=== PATIENT | male | born 1950 | race Caucasian/White ===

== ENCOUNTER 2016-07-28 18:47 | Observation (INO) | payer OTHER, MEDICARE ==
--- NOTE | 2016-07-28 19:01 | EDPHY ---
H & P Stated Complaint: leg cramping in bi-lat upper thighs Time Seen by Provider: 07/28/16 19:01 HPI/ROS: CHIEF COMPLAINT: Resolved left leg weakness HISTORY OF PRESENT ILLNESS: The patient presents to the emergency department with a chief complaint of resolve left leg weakness. Patient reported that 2 nights ago he experienced some cramping in his bilateral upper thighs but then developed a reported complete paralysis involving his left leg. The symptoms persisted for at least an hour. They gradually resolved through the night. Since that time the patient has had no recurrent symptoms. Patient did seek care at urgent care for evaluation of his symptoms and was referred to the ED for further evaluation. The patient tells me he has had approximately a 1-2 month history of some mild disequilibrium. He denies any dysarthria, aphasia or additional peripheral neurologic complaints. Patient does have a history of an aortic valve repair which was performed in [facility]. The patient was on an anticoagulant until earlier in the year. The patient has recently moved to [place] and has yet to establish primary care. REVIEW OF SYSTEMS: A comprehensive 10 point review of systems is otherwise negative aside from elements mentioned in the history of present illness. Source: Patient Exam Limitations: No limitations - Personal History Current Tetanus/Diphtheria Vaccine: Unsure Current Tetanus Diphtheria and Acellular Pertussis (TDAP): Unsure - Medical/Surgical History Hx Asthma: No Hx Chronic Respiratory Disease: Yes Hx Diabetes: No Hx Cardiac Disease: Yes Hx Renal Disease: Yes Hx Cirrhosis: No Hx Alcoholism: No Hx HIV/AIDS: No Hx Splenectomy or Spleen Trauma: No Other PMH: Angioplasty stent cad, COPD, HTN, High chol, gout - Social History Smoking Status: Former smoker - Physical Exam Exam: General Appearance: Alert, no distress Eyes: Pupils equal and round no pallor or injection ENT, Mouth: Mucous membranes moist Neck: No carotid bruit Respiratory: There are no retractions, lungs are clear to auscultation Cardiovascular: Regular rate and rhythm Gastrointestinal: Abdomen is soft and nontender, no masses, bowel sounds normal Neurological: A&O, normal motor function, normal sensory exam, normal cranial nerves Skin: Warm and dry, no rashes Musculoskeletal: Neck is supple nontender Extremities: symmetrical, full range of motion Constitutional: Initial Vital Signs Temperature (C) 36.5 C 07/28/16 18:50 Heart Rate 67 01/18/17 18:50 Respiratory Rate 16 07/28/16 18:50 Blood Pressure 150/85 H 07/28/16 18:50 O2 Sat (%) 95 07/28/16 18:50 O2 Delivery Mode Room Air Allergies/Adverse Reactions: No Known Allergies Allergy (Unverified 07/28/16 18:53) Home Medications: Medication Instructions Recorded Allopurinol [Allopurinol 100 MG 100 mg PO DAILY 07/28/16 (*)] Aspirin EC [Aspirin EC 81 mg (*)] 81 mg PO HS 07/28/16 Atorvastatin Calcium [Lipitor 20 20 mg PO HS 07/28/16 mg (*)] Budesonide/Formoterol 160/4.5 2 puffs IH BID 07/28/16 [Symbicort 160-4.5 Mcg Inh (*)] Herbals/Supplements -Info Only 1 ea PO DAILY 07/28/16 Omeprazole 40 mg PO DAILY 07/28/16 Valsartan [Diovan (*)] 160 mg PO DAILY 07/28/16 Vitamin B Complex [Super B-50 1 each PO DAILY 07/28/16 Complex] Medical Decision Making - Diagnostics EKG Interpretation: EKG: Complete interpretation has been separately recorded in the [employer] archive. Summary impression: Sinus rhythm, rate 58 Imaging: CT head without contrast: Nonspecific white matter changes noted, no mass, no bleed The CT angiogram neck: Complete occlusion of left internal carotid artery, collateral flow noted, no additional vascular abnormalities present. ED Course/Re-evaluation: The patient presents to the ED after an episode of left leg weakness 2 days ago which is entirely resolved. The patient has an NIH stroke scale of 0. The patient is noted to be in a sinus rhythm. Additionally the patient had a history of palpitations during his episode of leg weakness. The patient does have a history of an aortic valve repair and had been on Coumadin which he no longer takes. In the course of his workup he had an unremarkable noncontrast head CT scan. The patient does have evidence of a complete left internal carotid artery occlusion with collateral blood flow noted on the remainder of his angiogram. I do feel the patient should be admitted to the hospital for evaluation of a possible TIA. The patient does meet any criteria for thrombolytics therapy as he is currently asymptomatic. With a 100% collision of left internal carotid artery the patient is likely not a surgical candidate. My primary consideration for admitting the patient is his history of palpitations with these atypical neurologic symptoms in his left leg. Plan will be for monitoring for evidence of arrhythmia as well as echocardiogram. I will defer to the hospitalist service for any MRI imaging. Consultation is made with the hospitalist service for admission. I spoke with Dr. Edwards who will admit the patient. Differential Diagnosis: Differential diagnosis considered includes ischemic stroke, hemorrhagic stroke, TIA, peripheral neuropathy, arrhythmia, carotid dissection, carotid occlusion - Data Points Laboratory Results: Laboratory Results 07/28/16 19:46 07/28/16 19:46 07/28/16 07/28/16 19:50 19:46 WBC 8.74 10^3/uL (3.80-9.50) RBC 4.40 10^6/uL (4.40-6.38) Hgb 15.0 g/dL (13.7-17.5) POC Hgb 15.3 gm/dL (14.5-17.3) Hct 43.1 % (40.0-51.0) POC Hct 45 % (42.8-50.6) MCV 98.0 fL (81.5-99.8) MCH 34.1 pg (27.9-34.1) MCHC 34.8 g/dL (32.4-36.7) RDW 12.5 % (11.5-15.2) Plt Count 238 10^3/uL (150-400) MPV 9.8 fL (8.7-11.7) Neut % (Auto) 63.0 % (39.3-74.2) Lymph % (Auto) 23.0 % (15.0-45.0) [place] % (Auto) 8.0 % (4.5-13.0) Eos % (Auto) 4.3 % (0.6-7.6) Baso % (Auto) 1.1 % (0.3-1.7) Nucleat RBC Rel Count 0.0 % (0.0-0.2) Absolute Neuts (auto) 5.50 10^3/uL (1.70-6.50) Absolute Lymphs (auto) 2.01 10^3/uL (1.00-3.00) Absolute Monos (auto) 0.70 10^3/uL (0.30-0.80) Absolute Eos (auto) 0.38 10^3/uL (0.03-0.40) Absolute Basos (auto) 0.10 10^3/uL (0.02-0.10) Absolute Nucleated RBC 0.00 10^3/uL (0-0.01) Immature Gran % 0.6 % (0.0-1.1) Immature Gran # 0.05 10^3/uL (0.00-0.10) POC Sodium 143 mEq/L (134-144) Sodium 142 mEq/L (134-144) POC Potassium 4.2 mEq/L (3.3-5.0) Potassium 4.4 mEq/L (3.5-5.2) POC Chloride 104 mEq/L (96-108) Chloride 103 mEq/L (97-110) Carbon Dioxide 29 mEq/l (22-31) Anion Gap 10 mEq/L (8-16) POC BUN 27 H mg/dL (7-23) BUN 26 H mg/dL (7-23) Creatinine 1.4 H mg/dL (0.7-1.3) POC Creatinine 1.5 mg/dL (0.8-1.5) Estimated GFR 51 Glucose 83 mg/dL (70-100) POC Glucose 84 mg/dL (70-100) Calcium 9.3 mg/dL (8.5-10.4) Point of Care Test Results: 07/28/16 19:50 POC Sodium 143 POC Potassium 4.2 POC Chloride 104 POC BUN 27 H POC Creatinine 1.5 POC Glucose 84 Departure - Departure Disposition: [facility] Inpatient Acute Clinical Impression: TIA (transient ischemic attack), Left carotid artery occlusion Condition: Good Referrals: NONE *PRIMARY CARE P,. [Primary Care Provider] - As per Instructions
--- NOTE | 2016-07-28 19:52 | CPEKG ---
Heart Rate: 58 RR Interval: 1034 P-R Interval: 172 QRSD Interval: 94 QT Interval: 400 QTC Interval: 393 P [place]: 55 QRS [place]: 53 T Wave [place]: 79 EKG Severity - BORDERLINE ECG - EKG Impression: SINUS RHYTHM EKG Impression: PROBABLE LEFT ATRIAL ABNORMALITY Electronically Signed By: Cruz Harper 28-Jul-2016 21:08:13
[2016-07-28 19:56] LABS: % IMMATURE GRANULYOCYTES 0.6 % (0.0-1.1); ABSOLUTE IMMATURE GRANULOCYTES 0.05 10^3/uL (0.00-0.10); ADD DIFF? NO; ADD MORPH? NO; ADD SCAN? NO; ATYPICAL LYMPHOCYTE FLAG 10 (0-99); FRAGMENT RBC FLAG 0 (0-99); HEMATOCRIT 43.1 % (40.0-51.0); LEFT SHIFT FLG 0 (0-99); LIPEMIA HEMOLYSIS FLAG 90 (0-99); MEAN CELL HEMOGLOBIN 34.1 pg (27.9-34.1); MEAN CELL HEMOGLOBIN CONCENTR. 34.8 g/dL (32.4-36.7); MEAN PLATELET VOLUME 9.8 fL (8.7-11.7); PLATELET CLUMPS FLAG 10 (0-99); PLATELET COUNT 238 10^3/uL (150-400); RED CELL DISTRIBUTION WIDTH 12.5 % (11.5-15.2)
[2016-07-28 20:16] LABS: ANION GAP 10 mEq/L (8-16); CALCIUM 9.3 mg/dL (8.5-10.4); CARBON DIOXIDE 29 mEq/l (22-31); CHLORIDE 103 mEq/L (97-110); CREATININE 1.4 mg/dL (0.7-1.3); GLOMERULAR FILTRATION RATE 51; GLUCOSE 83 mg/dL (70-100); POTASSIUM 4.4 mEq/L (3.5-5.2); SODIUM 142 mEq/L (134-144)
[2016-07-28] MEDS ORDERED: IOPAMIDOL (ISOVUE 370) 100 ML BTL IV ONE (20:23)
--- NOTE | 2016-07-28 21:33 | CT ---
CT Brain (Without Contrast) July 28, 2016 at 2035 hours History: Leg weakness. Technique: Axial computed tomographic images of the brain, without contrast. Dose reduction techniq ues were utilized. Comparison: None. Findings: Ventricles, cisterns, and sulci are widened consistent with atrophy. No hydrocephalus, mi dline shift/herniation, or epidural/subdural hematomas. No acute intraparenchymal hemorrhage or mass effect. Cerebrovascular atherosclerosis. Hypodensities in the white matter of bilateral cerebral hemispheres. Bone windows demonstrate no displaced fractures. Paranasal sinuses and mastoid air ce lls are clear. Impressions 1. Mild atrophy. 2. No acute hemorrhage, hydrocephalus, or mass effect. 3. Cerebrovascular atherosclerosis. 4. No definite acute infarct. 5. Moderate microvascular ischemic disease. Critical results relayed by Dr. De La Cruz to Dr. Harper on July 28, 2016 at 2048 hours.
--- NOTE | 2016-07-28 22:04 | CT ---
CT Angiogram Head and CT Angiogram Neck Clinical Indication: TIA like symptoms. TECHNIQUE: 0.75-mm contiguous helical axial scanning from the lung apices through the top of the hea d after the uneventful administration of 75 mL of Isovue-370. Routine reconstructions were performed in the coronal and sagittal planes. Dose reduction technique was performed. FINDINGS CT Angiogram Neck: Timing of the bolus is adequate. The lung apices are clear. The brachiocephalic artery is patent. The common carotid artery is patent. The right vertebral artery is patent. The aortic bulb on the right is normal, with minimal soft plaque. The external carotid artery is patent. The internal carotid artery is patent. The left common carotid artery is patent. The left externa l carotid artery is patent. There is occlusion of the internal carotid artery on the left side. The left vertebral artery is patent. The subclavian artery is widely patent. IMPRESSION: Internal carotid artery occlusion, left side just beyond the bulb, new. CT Angiogram Head: The intracranial vessels fill equally despite the occluded internal carotid arter y. The anterior cerebral, middle cerebral, posterior cerebral, basilar, and vertebral arteries are w idely patent, without evidence of aneurysm or stenosis. The posterior communicating arteries are pat ent. IMPRESSION: Good collateralization of the intracranial vasculature despite internal carotid artery o cclusion on the left side. Critical results relayed by Dr. De La Cruz to Dr. Harper on July 28, 2015 at 2106 hours.
[2016-07-28] MEDS ORDERED: ACETAMINOPHEN 325 MG TAB PO PRN (22:41)
[2016-07-28] MEDS ORDERED: HYDROCODONE/APAP 5/325 TAB PO PRN (22:41)
[2016-07-28] MEDS ORDERED: ONDANSETRON 4 MG/2 ML VIAL IVP PRN (22:41)
[2016-07-28] MEDS ORDERED: ALBUTEROL 3 ML DEYVIAL IH PRN (22:41)
[2016-07-28] MEDS ORDERED: ONDANSETRON DISINTEGRATING 4 MG TAB PO PRN (22:41)
[2016-07-28] MEDS ORDERED: ATORVASTATIN CALCIUM 20 MG TAB ONE (22:53)
[2016-07-28] MEDS ORDERED: ASPIRIN 81 MG CHEWABLE TAB ONE (22:54)
[2016-07-28] MEDS ORDERED: ASPIRIN EC 81 MG TAB PO SCH (23:00)
[2016-07-28] MEDS ORDERED: ATORVASTATIN CALCIUM 20 MG TAB PO SCH (23:00)
--- NOTE | 2016-07-29 03:54 | PDGENHP ---
History and Physical - Chief Complaint transiet leg weakness - History of Present Illness Patient is a 66-year-old male with history of hypertension, COPD, CAD and CKD presents to the ED with complaint of left leg weakness experienced 2 days ago. Patient states on the evening of 07/25 into program arranger of 07/26 he was lying in his bed when he felt cramping sensation in his posterior thigh of the left leg. With this pain he also reported feeling some palpitations. The symptoms occurred in 2 distinct episodes lasting a minute or 2 He got out of bed at this time to try and walk around and noticed his leg did not seem to be working and he was having difficulty walking due to leg weakness. He went back to bed and by the morning on awakening his symptoms had resolved. He denies any fall or associated numbness/tingling, headache, dizziness, chest pain, shortness of breath, nausea, vomiting or diarrhea. He also denies any recent illnesses. Given the associated palpitations, the following day the patient decided trying obtain an appointment with a orchestra conductor. When he described his symptoms to the orchestra conductor's office he was advised to go to the emergency room for further evaluation. He postpone coming to the ED for another day, and then on 07/28 went to an urgent care for evaluation. His symptoms had resolved and he had no other complaints on arrival to the urgent care, was sent to the ED for further evaluation. History Information - Allergies/Home Medication List Allergies/Adverse Reactions: No Known Allergies Allergy (Unverified 07/28/16 18:53) Home Medications: Allopurinol [Allopurinol 100 MG (*)] 100 mg PO DAILY 07/28/16 [Last Taken ] Aspirin EC [Aspirin EC 81 mg (*)] 81 mg PO HS 07/28/16 [Last Taken 07/27/16] Atorvastatin Calcium [Lipitor 20 mg (*)] 20 mg PO HS 07/28/16 [Last Taken ] Budesonide/Formoterol 160/4.5 [Symbicort 160-4.5 Mcg Inh (*)] 2 puffs IH BID [Last Taken Unknown] Herbals/Supplements -Info Only 1 ea PO DAILY 07/28/16 [Last Taken Unknown] Omeprazole 40 mg PO DAILY 07/28/16 [Last Taken Unknown] Valsartan [Diovan (*)] 160 mg PO DAILY 07/28/16 [Last Taken 07/28/16] Vitamin B Complex [Super B-50 Complex] 1 each PO DAILY 07/28/16 [Last Taken ] I have personally reviewed and updated: family history, medical history, social history, surgical history - Past Medical History Additional medical history: CAD status post PCI x1 about 2 years ago. Hypertension. Hyperlipidemia. COPD. Gout. CKD stage 2 to 3 - Surgical History Additional surgical history: Denies any surgical history - Family History Positive for: non-pertinent (No family history of cardiac disease) - Social History Smoking Status: Former smoker (Quit smoking about 6 years ago, had 35 pack year history) Alcohol Use: Occasionally Drug Use: None Additional social history: Patient currently works in [employer]. Recently moved to [place] after living in [facility] and [place]. He lives alone is independent in all ADLs. Review of Systems ROS: 10pt was reviewed & negative except for what was stated in HPI & below Physical Exam Temp Pulse Resp BP Pulse Ox 36.4 C 62 18 106/65 93 07/29/16 00:00 07/29/16 00:00 07/29/16 00:00 07/29/16 00:00 07/29/16 00:00 Constitutional: no apparent distress, appears nourished, not in pain Eyes: PERRL, anicteric sclera, EOMI Ears, Nose, Mouth, Throat: moist mucous membranes, hearing normal, ears appear normal, no oral mucosal ulcers Cardiovascular: regular rate and rhythym, systolic murmur, pulses symmetric bilaterally, No JVD, No edema Peripheral Pulses: 2+: dorsalis-pedis (R), dorsalis-pedis (L) Respiratory: no respiratory distress, no rales or rhonchi, clear to auscultation Gastrointestinal: normoactive bowel sounds, soft, non-tender abdomen, no palpable masses Genitourinary: no bladder fullness, no bladder tenderness Skin: warm, normal color, no rashes or abrasions, no fluctuance, No mottled Musculoskeletal: full muscle strength, no muscle tenderness, normal joint ROM, no joint effusions Neurologic: AAOx3, sensation intact bilaterally, CN II-XII Intact, other ( Strength 5/5 in all extremities), No weakness, No numbness, No pronator drift, No facial droop Psychiatric: interacting appropriately, not anxious, not encephalopathic, thought process linear Lab Data & Imaging Review 07/28/16 19:46 07/28/16 19:46 WBC 8.74 10^3/uL (3.80-9.50) 07/28/16 19:46 RBC 4.40 10^6/uL (4.40-6.38) 07/28/16 19:46 Hgb 15.0 g/dL (13.7-17.5) 07/28/16 19:46 POC Hgb 15.3 gm/dL (14.5-17.3) 07/28/16 19:50 Hct 43.1 % (40.0-51.0) 07/28/16 19:46 POC Hct 45 % (42.8-50.6) 07/28/16 19:50 MCV 98.0 fL (81.5-99.8) 07/28/16 19:46 MCH 34.1 pg (27.9-34.1) 07/28/16 19:46 MCHC 34.8 g/dL (32.4-36.7) 07/28/16 19:46 RDW 12.5 % (11.5-15.2) 07/28/16 19:46 Plt Count 238 10^3/uL (150-400) 07/28/16 19:46 MPV 9.8 fL (8.7-11.7) 07/28/16 19:46 Neut % (Auto) 63.0 % (39.3-74.2) 07/28/16 19:46 Lymph % (Auto) 23.0 % (15.0-45.0) 07/28/16 19:46 [place] % (Auto) 8.0 % (4.5-13.0) 07/28/16 19:46 Eos % (Auto) 4.3 % (0.6-7.6) 07/28/16 19:46 Baso % (Auto) 1.1 % (0.3-1.7) 07/28/16 19:46 Nucleat RBC Rel Count 0.0 % (0.0-0.2) 07/28/16 19:46 Absolute Neuts (auto) 5.50 10^3/uL (1.70-6.50) 07/28/16 19:46 Absolute Lymphs (auto) 2.01 10^3/uL (1.00-3.00) 07/28/16 19:46 Absolute Monos (auto) 0.70 10^3/uL (0.30-0.80) 07/28/16 19:46 Absolute Eos (auto) 0.38 10^3/uL (0.03-0.40) 07/28/16 19:46 Absolute Basos (auto) 0.10 10^3/uL (0.02-0.10) 07/28/16 19:46 Absolute Nucleated RBC 0.00 10^3/uL (0-0.01) 07/28/16 19:46 Immature Gran % 0.6 % (0.0-1.1) 07/28/16 19:46 Immature Gran # 0.05 10^3/uL (0.00-0.10) 07/28/16 19:46 POC Sodium 143 mEq/L (134-144) 07/28/16 19:50 Sodium 142 mEq/L (134-144) 07/28/16 19:46 POC Potassium 4.2 mEq/L (3.3-5.0) 07/28/16 19:50 Potassium 4.4 mEq/L (3.5-5.2) 07/28/16 19:46 POC Chloride 104 mEq/L (96-108) 07/28/16 19:50 Chloride 103 mEq/L (97-110) 07/28/16 19:46 Carbon Dioxide 29 mEq/l (22-31) 07/28/16 19:46 Anion Gap 10 mEq/L (8-16) 07/28/16 19:46 POC BUN 27 mg/dL (7-23) H 07/28/16 19:50 BUN 26 mg/dL (7-23) H 07/28/16 19:46 Creatinine 1.4 mg/dL (0.7-1.3) H 07/28/16 19:46 POC Creatinine 1.5 mg/dL (0.8-1.5) 07/28/16 19:50 Estimated GFR 51 07/28/16 19:46 Glucose 83 mg/dL (70-100) 07/28/16 19:46 POC Glucose 84 mg/dL (70-100) 07/28/16 19:50 Calcium 9.3 mg/dL (8.5-10.4) 07/28/16 19:46 Visualized and Interpreted imaging results: Yes Interpretation: CT head: No acute intracranial abnormality. CT angio head/neck : 100% occlusion of left internal carotid artery, with good collateral Visualized and Interpreted EKG results: Yes EKG Interpretation: Positive for: normal sinsus rhythm (No ST/T-wave changes, normal intervals) Assessment & Plan Assessment: Patient is a 66-year-old male with history of CAD, hypertension, COPD and CKD who presents to the ED complaining of at isolated episode of left lower extremity weakness 2 days prior to presentation. Current neuro exam is unremarkable. ED workup reveals 100% left ICA occlusion, was otherwise unremarkable. Plan: # left lower extremity weakness The event occurred of 2 days prior to presentation and has not recurred since, and was not associated with any other focal neurological symptoms or deficits. Workup reveals 100% occlusion of the left ICA, with good collateral formation. EKG and labs were unremarkable. Symptoms appear consistent with a TIA. Will monitor on telemetry, check TTE and obtain MRI brain. Patient is already on aspirin and statin, will continue these. # CAD w/PCI x 1 Patient denies any cardiac symptoms on presentation. Will cont home meds. # COPD Stable respiratory status, cont home advair, albuterol prn. # HTN BP stable. Cont home med. # HLD cont statin. # CKD Renal function mildly impaired, have given gentle IVF hydration and will reassess. Likely at baseline. # dispo: admit as observation status for w/u of TIA # full code
[2016-07-29] MEDS ORDERED: NS 1,000 ML IV ONE (04:15)
[2016-07-29 05:33] LABS: % IMMATURE GRANULYOCYTES 0.5 % (0.0-1.1); ABSOLUTE IMMATURE GRANULOCYTES 0.04 10^3/uL (0.00-0.10); ADD DIFF? NO; ADD MORPH? NO; ADD SCAN? NO; ATYPICAL LYMPHOCYTE FLAG 10 (0-99); FRAGMENT RBC FLAG 0 (0-99); HEMOGLOBIN 14.3 g/dL (13.7-17.5); LEFT SHIFT FLG 0 (0-99); LIPEMIA HEMOLYSIS FLAG 90 (0-99); MEAN CELL HEMOGLOBIN CONCENTR. 34.9 g/dL (32.4-36.7); MEAN CELL VOLUME 97.4 fL (81.5-99.8); MEAN PLATELET VOLUME 10.4 fL (8.7-11.7); PLATELET CLUMPS FLAG 10 (0-99); PLATELET COUNT 238 10^3/uL (150-400); RED BLOOD CELL COUNT 4.21 10^6/uL (4.40-6.38); RED CELL DISTRIBUTION WIDTH 12.5 % (11.5-15.2)
[2016-07-29 05:46] LABS: ANION GAP 10 mEq/L (8-16); CARBON DIOXIDE 26 mEq/l (22-31); CHLORIDE 106 mEq/L (97-110); CREATININE 1.4 mg/dL (0.7-1.3); GLOMERULAR FILTRATION RATE 51; GLUCOSE 91 mg/dL (70-100); MAGNESIUM 2.1 mg/dL (1.6-2.3); POTASSIUM 4.2 mEq/L (3.5-5.2); SODIUM 142 mEq/L (134-144)
[2016-07-29 05:58] LABS: TROPONIN I 0.026 ng/mL (0-0.034)
[2016-07-29 08:46] VITALS: RESP 18
[2016-07-29] MEDS ORDERED: PANTOPRAZOLE SODIUM 40 MG TAB PO SCH (09:00)
[2016-07-29] MEDS ORDERED: ENOXAPARIN 40 MG/0.4 ML SYR SC SCH (09:00)
[2016-07-29] MEDS ORDERED: VALSARTAN 160 MG TAB PO SCH (09:00)
[2016-07-29] MEDS ORDERED: BUDESONIDE/FORMOTEROL 160/4.5 60 PUFFS/MDI IH SCH (09:00)
[2016-07-29] MEDS ORDERED: VITAMIN B COMPLEX 1 EA CAP/TAB PO SCH (09:00)
[2016-07-29] MEDS ORDERED: ALLOPURINOL 100 MG TAB PO SCH (09:00)
--- NOTE | 2016-07-29 09:51 | MR ---
MRI of the Brain (Without Contrast) at 0857 hours Clinical Indication: Possible transient ischemic attack 2 days ago with left leg weakness COMPARISON: CT brain July 28, 2016. Technique: T1-weighted images were acquired axially and sagittally from the foramen magnum to the ve rtex. Axial fast inversion recovery, fast T2-weighted, and diffusion-weighted axial images were obta ined without contrast. Findings: The ventricles, cisterns, and sulci are widened consistent with atrophy. No hydrocephalus, midline shift, herniation, or epidural/subdural hematomas. No intracranial hemorrhage or masses. Dif fusion-weighted sequence demonstrates no acute infarct. Cerebellar tonsils are in normal positions. P ituitary gland is normal in size. Occluded left internal carotid artery. Flow void in the right inter nal carotid artery and basilar artery indicating patency. Superior sagittal sinus appears patent. Par anasal sinuses and mastoid air cells are clear. Throughout the white matter of bilateral cerebral hem ispheres especially in the periventricular white matter of bilateral frontal, parietal and occipital lobes there are multiple hyperintense T2/FLAIR signal abnormalities and decreased T1 signal abnormali ties oriented perpendicular to the long axis and predominantly in the periventricular and pericallosa l white matter suggestive of multiple sclerosis. No definite evidence of restricted diffusion. No bra instem or cerebellar infarcts noted. Impression: 1. Mild cerebral atrophy. 2. No acute infarct, acute hemorrhage, hydrocephalus, mass effect, or herniation. 3. Several multiple sclerosis demyelinating plaques noted. 4. Occluded left internal carotid artery. Findings discussed with Dr. Telma Dejesus at 0945 hour, today.
--- NOTE | 2016-07-29 11:28 | ECHO ---
[id number] + + [address] : : [place] [address] : : [phone] + Adult Echocardiographic Report + ---+ :Name: Sophie GUERRERO Date: 07/29/2016 08:35 AM : : Hospital Admission Number: [id number] Location: 343: :: 1950 Gender: Male Height: 72 in : :Age: 66 yrs Race: WH Weight: 199 lb : :Reason For Study: Eval LV Fx, Valves : : BSA: 2.1 meters2 : :History: TIA, Occluded LCC, Murmur : + ---+ MMode/2D Measurements & Calculations IVSd: 0.85 cm LVIDd: 5.1 cm FS: 48.8 % Ao root diam: 3.1 cm LVPWd: 1.2 cm LVIDs: 2.6 cm EDV(Teich): 123.2 ml ACS: 0.78 cm ESV(Teich): 24.8 ml EF(Teich): 79.9 % LVOT diam: 2.1 cm LVOT area: 3.5 cm2 Normal Measurement Values: + + :LVIDd (3.5-5.7cm) IVSd (0.6-1.1cm) LVPWd (0.6-1.1cm) Aortic Root (2.0-3.7cm)Left Atrium (1.5-4.0cm): :LV Vol(d) (76-115ml) LV Vol(s) (29-48ml) Ejec Fraction (50-65%)PV [place] (0.6- 1.2m/s) TV [place] (0.4-1.0m/s) : :MV E [place] (0.8-1.0m/s)MV A [place] (0.3-1.0m/s)LVOT [place] (0.7-1.2m/s) Asc Ao [place] ( 0.9-1.8m/s) : + + Doppler Measurements & Calculations MV E max edmond: MV V2 mean: Ao V2 max: AI max edmond: 69.6 cm/sec 72.3 cm/sec 295.9 cm/sec 356.3 cm/sec MV A max edmond: MV mean PG: Ao max PG: AI max P.8 mmHg 84.4 cm/sec 2.5 mmHg 35.0 mmHg AI dec slope: MV E/A: 0.82 MV V2 VTI: Ao mean P.2 cm 20.4 mmHg 173.7 cm/sec2 Ao V2 mean: AI P1/2t: 601.0 msec MVA(VTI): 3.7 cm2 212.4 cm/sec Ao V2 VTI: 69.7 cm JOHANN(I,D): 2.0 cm2 JOHANN(V,D): 2.0 cm2 LV V1 max: SV(LVOT): PA V2 max: TR max edmond: 168.4 cm/sec 142.7 ml 111.3 cm/sec 302.7 cm/sec LV V1 max PG: PA max PG: TR max P.6 mmHg 11.3 mmHg 5.0 mmHg RAP systole: LV V1 mean P.0 mmHg 7.6 mmHg RVSP(TR): 41.6 mmHg LV V1 mean: 130.0 cm/sec LV V1 VTI: 41.2 cm Left Ventricle The left ventricle is normal in size. There is normal left ventricular wall thickness. The left ventricular ejection fraction is normal. There is Doppler evidence for diastolic dysfunction. Ejection Fraction = 79%. The left ventricular wall motion is normal. Right Ventricle The right ventricle is normal in size and function. Atria The left atrial size is normal. Right atrial size is normal. Mitral Valve The mitral valve is normal in structure and function. There is no evidence of mitral valve prolapse. There is no mitral valve stenosis. There is no mitral regurgitation noted. Tricuspid Valve Normal tricuspid valve. There is mild tricuspid regurgitation. Right ventricular systolic pressure is 42mmHg. There is Doppler evidence for mild pulmonary hypertension. Aortic Valve Moderate-Severe Aortic Valve Calcification. The Ao V2 max is 2.95 m/sec, with a Ao mean PG of 20 mmHg. Mild to moderate valvular aortic stenosis. Moderate aortic regurgitation. Pulmonic Valve The pulmonic valve is normal in structure and function. There is no pulmonic valvular regurgitation. Great Vessels The aortic root is normal size. Pericardium/Pleural There is no pericardial effusion. Conclusion A complete two-dimensional transthoracic echocardiogram was performed (2D, M-mode, Doppler and color flow Doppler). The left ventricular ejection fraction is normal. There is Doppler evidence for diastolic dysfunction. Ejection Fraction = 79%. The left ventricular wall motion is normal. The right ventricle is normal in size and function. The mitral valve is normal in structure and function. There is no mitral regurgitation noted. Normal tricuspid valve There is mild tricuspid regurgitation. Right ventricular systolic pressure is 42mmHg. There is Doppler evidence for mild pulmonary hypertension. Moderate-Severe Aortic Valve Calcification The Ao V2 max is 2.95 m/sec, with a Ao mean PG of 20 mmHg. Mild to moderate valvular aortic stenosis. Moderate aortic regurgitation. There is no pericardial effusion. Final Reading Physician: Sandrine Major signed on 07/29/2016 11:27 AM Ordering Physician: Cherie Meyer Performed By: Harvinder Quiles, MARTINECS
[2016-07-29 12:08] VITALS: BP 135/68; PULSE 66; TEMP 98.5; O2SAT 92
--- NOTE | 2016-07-29 16:02 | GCON ---
[f rep st] CONSULTATION NEUROLOGY CONSULTATION REFERRING PHYSICIAN: Cherie Meyer MD HISTORY: The patient is a 66-year-old gentleman, whom I am asked to see in neurologic consultation r egarding some recent changes in his legs. He tells me that he had a transient episode about 6 or 7 m onths ago that is hard to put into words,where he had a little bit of trouble with communication or t hinking, but was not around anybody to really test his language. That was quite transient. Three ni ghts ago, he was in bed and awoke with bilateral cramps in the legs. This lasted a few minutes and t hen he rested, and about an hour or so later he again awoke and had some similar symptoms of a cramp in the left leg, but then when he tried to move the leg he said it was like a wet noodle for about 30 or 40 seconds and then resolved. He tells me that periodically he has nonpainful contractions in th e left hand, characterized by spreading of the fingers which goes away after just a few moments, but can occur at variable times. He denies any headache. No fever or chills, nausea, vomiting, or diarr hea. He has a history of a left carotid occlusion, which he said was found recently on a workup when he was out of town. He has described intermittent problems with his left upper extremity, but has s ome known cervical spine disease. He had normal and development, and did not have any episodes of numbness or unexplained neurologic dysfunction growing up. He has been very active throughout hi s life. In reviewing family history, he says that he has a nephew who has developmental delay and th en 1 of his other nephew's son also has developmental delay. His mother and father did not have any specific neurologic condition he knows of. His brother, who might have been the potential carrier, i s but did not have any specific known neurologic disorder. He says that he remembers someth ing about being told of some condition that he needed to know about when his brother had the son hector munoz with developmental delay. I asked if it might be leukodystrophy and he thought that word sounde d familiar, but he really was not sure. He has never really looked into it in much detail and says h is brother is rather quiet in talking about it. In any case, he denies bowel or bladder dysfunction. He is feeling a little bit more unsteady lately and it is a nonspecific sense of disequilibrium th at affects him intermittently. He has not found any other exacerbating or alleviating factors. He i s again denying any other new symptoms. REVIEW OF SYSTEMS: The 10-point review of systems was completed and unremarkable, except for that no benny above. ALLERGIES: He has no known drug allergies. FAMILY HISTORY: As outlined above. PAST MEDICAL HISTORY: He has a history of coronary disease and has had a stent. He has hypertension , hyperlipidemia, COPD, gout, some kidney disease that is chronic. SOCIAL HISTORY: He had a 35 pack-year smoking history and quit about 6 years ago. He has only consu med alcohol in moderation for the most part, usually having 1 or 2 glasses of wine each evening with dinner. He works in [employer] and is working with someone in the area. He has had work in [id number] locations, including [facility] and [place]. MEDICATIONS ON ADMISSION: Include allopurinol, aspirin, atorvastatin, Symbicort, some herbal supplem ents, Diovan, and vitamin B complex. On. PHYSICAL EXAMINATION: VITAL SIGNS: Blood pressure 135/68, pulse of 66, respirations 18, temperature 36.9. GENERAL: He is well developed and mildly overweight, in no acute distress. EYES: Clear. N LAW: Supple with no bruits or masses. CARDIAC: Regular rate and rhythm with a 1/6 systolic murmur. EXTREMITIES: No cyanosis or edema. Pulses are 2+. NEUROLOGIC: He is awake, alert, and attentive with clear and fluent speech. He is oriented to person, place, time, and general situation. The re cent and remote memory are preserved. He has normal concentration and attention, as well as general fund of knowledge. Pupils are 2 mm and reactive. Extraocular movements are intact. Normal facial s ensation and strength. Palate elevates symmetrically. Tongue protrudes midline. No weakness of hea d turning or shoulder shrug. Motor exam: Normal muscle bulk and tone with 5/5 strength and no abnormal movements. Sensation is p reserved for temperature and light touch in all the extremities. No ataxia. Reflexes are brisk, but symmetric with no Babinski signs. IMAGING: He has had CT angiogram showing occlusion of the left internal carotid artery. This is shanti ething that has been known. Head CT was relatively unremarkable, but the MRI looks suspicious for a demyelinating disorder with characteristics of periventricular lesions and representing prominent dayan nges, but nonspecific. He has had echocardiogram obtained as well. This shows good ejection fraction and no other distinct anomalies. LABORATORY STUDIES: Unremarkable CBC. BUN of 24, creatinine 1.4. IMPRESSION: Mr. Vaughn has 2 principal problems. The first is the episodes of cramping and some brie f dysfunction in the left leg, as well as what sounds like some dystonia intermittently in the left h and. Based on the MRI findings, it looks as if he may have a primary demyelinating disorder, althoug h an acquired condition like multiple sclerosis remains within the differential consideration. With the family history, I am concerned about an adrenal leukodystrophy or adrenal myeloneuropathy. We wi ll check very long chain fatty acid profile and then consider other diagnostic studies. If all of th at is negative, then we might pursue spinal fluid analysis to look for oligoclonal banding. He also has a carotid occlusion, which was known prior to hospitalization and seems to be asymptomatic. I do not think the dysfunction in his legs is consistent with a TIA, but rather some spasticity and cramp ing from this demyelinating disorder. At this point, he will be discharged and follow up with me as an outpatient. He will try to gather f urther family information regarding what his nephews may have had. We will then follow up and wait o n the results of the very long chain fatty acids and consider other strategies for management should he happen to have a genetic disorder. /[id number]/MODL
--- NOTE | 2016-07-29 18:51 | GDS ---
[f rep st] DISCHARGE SUMMARY DISCHARGE DIAGNOSES: Demyelinating disorder. CONSULTATIONS: Dr. Garcia of Neurology. STUDIES AND PROCEDURES DONE: 1. CT of the head. 2. CT angio of the head and neck. 3. MRI of the brain. PHYSICAL EXAM: GENERAL: The patient is alert. VITAL SIGNS: Afebrile 36.9, pulse 66, respiratory r ate is 18, blood pressure is 135/68. He is saturating 92% on room air. I have seen and evaluated th e patient on the day of discharge. HOSPITAL COURSE: Mr. Vaughn is a 66-year-old male, who presented to the emergency room with complaint s of bilateral leg cramping with weakness. He was evaluated and diagnosed with: 1. A demyelinating disorder. The patient's MRI of his brain is abnormal. I have consulted and disc ussed with Dr. Garcia of Neurology, and is unclear the patient's primary demyelinating disorder; h owever, further laboratory evaluation and workup will be done to determine a specific diagnosis. The patient will follow up in the outpatient setting with Dr. aGrcia for further treatment recommenda tions and possible definitive diagnosis. 2. Internal carotid artery occlusion. This is evident on the CT angio performed during this hospita lization. The patient is aware of this diagnosis and has had this for a lengthy amount of time. He does have good collateralization and does not require any intervention at this time. 3. COPD. This is stable with no signs of acute exacerbation. DISPOSITION: Mr. Vaguhn will be discharged home independently. FOLLOWUP: With his primary care physician of choice, as well as Dr. Garcia of Neurology. Again, the patient has been informed of his new underlying diagnosis and will follow up in the outpatient se tting as desired. /[id number]/MODL
== END 2016-07-29 14:31 | disposition home or self-care (01) ==
LOC: F3N 21:56
PROVIDERS: ADMIT Internal Medicine; ATTEND Hospitalist
DX: G37.9 Demyelinating disease of central nervous system, unspecified (principal); I65.29 Occlusion and stenosis of unspecified carotid artery; I12.9 Hypertensive chronic kidney disease with stage 1 through stage 4 chronic kidney disease, or unspecified chronic kidney disease; N18.2 Chronic kidney disease, stage 2 (mild); J44.9 Chronic obstructive pulmonary disease, unspecified; E78.5 Hyperlipidemia, unspecified; Z95.2 Presence of prosthetic heart valve; Z95.5 Presence of coronary angioplasty implant and graft; Z87.891 Personal history of nicotine dependence
CPT/HCPCS: 70450; 70496; 70498; 70551; 93005; 93306; 99285; G0378; J1650; Q9967; 82947-QW

== ENCOUNTER → 2016-08-05 | Outpatient (CLI) | payer OTHER, MEDICARE ==
[~2016-08-05] MED LIST: LIDOCAINE 1% 30 ML SDV ONE; NA BICARBONATE 50 MEQ/50 ML VIAL ONE
[2016-08-05 10:43] LABS: CSF APPEARANCE CLEAR (CLEAR); CSF COLOR COLORLESS (COLORLESS); WBC, CSF 0 /mm3 (0-5)
[2016-08-05 10:45] LABS: PROTEIN, CSF 62 mg/dL (12-60)
--- NOTE | 2016-08-05 11:54 | DX ---
Fluoroscopically Guided Lumbar Puncture 9:09 a.m. Indication: Left leg weakness. Evaluate for demyelinating process. Crosscutting Measure #226: Current tobacco user: No. Informed consent was given, which included the risk of spinal headache, infection, aseptic meningitis and bleeding. The patient agreed to proceed. Technique: The right L3-L4 interlaminar space was identified with preprocedural fluoroscopy and the s kin was marked. The skin was sterilely prepped and draped. The skin and deep soft tissues were numbe d with 1% lidocaine. Under direct fluoroscopy, a 22-gauge Izabel needle was introduced into the CSF space. 9 mL of clear fluid were obtained and sent to the Laboratory in four aliquots. The patient to lerated the procedure well and was returned to the tang of origin without complication. Specimen: 9 mL of clear cerebral spinal fluid. Impression: Successful diagnostic lumbar puncture. Specimens sent to the Laboratory.
[2016-08-07 12:35] LABS: ALBUMIN CSF 32.9 mg/dL (<=27.0); CSF IGG INDEX 0.67 (<=0.85); IGG CSF 4.7 mg/dL (<=8.1); IGG/ALBUMIN CSF 0.14 (<=0.21); IGG/ALBUMIN SERUM 0.21 (<=0.40); SYNTHESIS RATE 6.55 mg/24 h (<=12)
== END ==
LOC: FIMAGING 06:58
PROVIDERS: ATTEND Psychiatry & Neurology Neurology
PROC: 009U3ZX Drainage of Spinal Canal, Percutaneous Approach, Diagnostic (ICD-10-PCS; principal; 2016-08-05)
DX: G37.9 Demyelinating disease of central nervous system, unspecified (principal); Z01.812 Encounter for preprocedural laboratory examination
CPT/HCPCS: 82784-90; 83916-90; 86334-90

== ENCOUNTER → 2016-09-10 | Outpatient (CLI) | payer OTHER, MEDICARE | LOC: BHFA 15:00 | PROVIDERS: ATTEND Internal Medicine Cardiovascular Disease | DX: M79.606 Pain in leg, unspecified (principal); I25.10 Atherosclerotic heart disease of native coronary artery without angina pectoris ==